=== PATIENT | female | born 2000 | race African-American/Black ===

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

== ENCOUNTER 2019-02-08 18:23 | Inpatient (IN) | payer BC ==
[2019-02-08] MEDS ORDERED: Ondansetron PF 4 MG/2 ML Vial ONE (18:47)
[2019-02-08 18:50] LABS: #Lymphocytes 1.3 thou/uL (1.20-3.40); #Neutrophils 15.1 thou/uL (1.40-6.50); %Basophils 0.2 % (0.0-1.0); %Eosinophils 0.2 % (0.0-10.0); %Lymphocytes 7.6 % (28.0-48.0); %Monocytes 5.5 % (0.0-4.0); %Neutrophils 86.5 % (31.0-61.0); Mean Corpuscular HGB CONC 31.1 g/dL (32.0-36.0); Mean Corpuscular Hemoglobin 26.6 pg (25.0-35.0); Mean Corpuscular Volume 85.7 fL (78.0-98.0); Mean Platelet Volume 9.8 fL (7.4-10.4); Platelet Count 489 thou/uL (130-400); RBC Distribution Width 12.5 % (11.5-14.5); Red Blood Cell (RBC) Count 5.65 mill/uL (4.00-5.20); White Blood Cell (WBC) Count 17.5 thou/uL (4.8-10.8)
[2019-02-08 19:12] LABS: ALT (SGPT) 20 U/L (8-55); AST (SGOT) 17 U/L (5-30); Albumin 4.7 g/dL (3.5-5.0); Alkaline Phosphatase 168 U/L (40-150); Anion Gap 32 mmol/L (10-20); BUN (Urea Nitrogen) 16 mg/dL (8.4-21.0); Bilirubin, Total 0.6 mg/dL (0.2-1.2); Calc. Creatinine Clearance 0 mL/min (70-130); Calcium 10.5 mg/dL (7.8-10.44); Chloride 100 mmol/L (98-107); Estimated GFR-MDRD 46; Globulin 4.6 g/dL (2.4-3.5); Lipase 6 U/L (8-78); Potassium 5.4 mmol/L (3.5-5.1); Protein, Total 9.3 g/dL (6.0-8.3); Sodium 135 mmol/L (136-145)
[2019-02-08 19:17] LABS: Carbon Dioxide 8 mmol/L (22-29); Glucose 597 mg/dL (70-105)
[2019-02-08] MEDS ORDERED: Insulin Regular 100 units/100 ml in NS IVPB SCH (20:45)
[2019-02-08 21:24] LABS: Bilirubin Negative (Negative); Blood, Urine Negative (Negative); Clarity CLEAR (Clear); Glucose, Urine (Dipstick) >=1000 mg/dL (Negative); Leukocyte Negative (Negative); Nitrite Negative (Negative); Protein, Urine (Dipstick) 30 mg/dL (Neg-Trace); Specific Gravity, Urine 1.025 (1.002-1.036); Urobilinogen 0.2 mg/dL (0.2-1.0)
[2019-02-08 21:27] LABS: Bacteria/HPF None Seen HPF (None Seen); Hyaline Casts/LPF 0-3 HYALINE CAST LPF (0-3 Hyaline); Pathc Cast-AUWi Flag 0.13 (0-2.49); Squamous Epithelial None Seen HPF (0-3); WBC/HPF None Seen HPF (0-3)
[2019-02-08] MEDS ORDERED: Insulin Regular 300 UNITS/3 ML VIAL ONE (21:30)
[2019-02-08 22:17] LABS: Magnesium 2.1 mg/dL (1.7-2.2); Phosphorus 5.7 mg/dL (2.3-4.7)
[2019-02-08] MEDS ORDERED: NS 0.9% w/ 20 MEQ KCL 1,000 ML IV PRN ×2 (22:30)
[2019-02-08] MEDS ORDERED: Dextrose 5 %-0.45 % NaCl 1,000 ML IV PRN (22:30)
[2019-02-08] MEDS ORDERED: HUMULIN R 100 UNITS in Sodium Chloride 0.9% 100 ML IVPB SCH (22:30)
[2019-02-08] MEDS ORDERED: Sodium Chloride 0.9% 1,000 ML IV PRN ×4 (22:30)
[2019-02-08] MEDS ORDERED: D5 1/2 NS w/20 mEq KCL 1,000 ML IV PRN (22:30)
[2019-02-08] MEDS ORDERED: CCU Electrolyte Replacement 1 EACH IVPB ONE (22:30)
[2019-02-08] MEDS ORDERED: Ondansetron ODT 4 MG TAB PO PRN (22:34)
[2019-02-08] MEDS ORDERED: Acetaminophen 325 MG TAB PO PRN (22:34)
[2019-02-08] MEDS ORDERED: Ondansetron PF 4 MG/2 ML Vial IVP PRN (22:34)
[2019-02-08] MEDS ORDERED: Potassium Chloride 20 MEQ TAB PO PRN (22:35)
[2019-02-08] MEDS ORDERED: Potassium Phosphate 15 MMOL in Sodium Chloride 0.9% 250 ML 250 ML IV PRN (22:35)
[2019-02-08] MEDS ORDERED: Potassium Chloride 40 MEQ in Sodium Chloride 0.9% 250 ML 250 ML IVPB PRN (22:35)
[2019-02-08] MEDS ORDERED: Magnesium Oxide 400 MG TAB PO PRN ×2 (22:35)
[2019-02-08] MEDS ORDERED: Potassium Chloride 40 MEQ in Premix Bag 1 BAG IVPB PRN (22:35)
[2019-02-08] MEDS ORDERED: Magnesium 2 GM/50 ML 2 GM in Premix Bag 1 BAG IVPB PRN (22:35)
[2019-02-08] MEDS ORDERED: PHOS-NAK 1 PKT PACK PO PRN ×2 (22:35)
[2019-02-08] MEDS ORDERED: CCU ELECTROLYTE REPLACEMENT PROTOCOL FS PRN (22:35)
[2019-02-08] MEDS ORDERED: Potassium Phosphate 9 MMOL in Sodium Chloride 0.9% 100 ML IVPB PRN (22:35)
[2019-02-08] MEDS ORDERED: Potassium Phosphate 12 MMOL in Sodium Chloride 0.9% 250 ML 250 ML IV PRN (22:35)
[2019-02-08 23:32] LABS: Chloride 111 mmol/L (98-107); Potassium 4.6 mmol/L (3.5-5.1); Sodium 141 mmol/L (136-145)
[2019-02-08 23:33] LABS: Calcium 9.5 mg/dL (7.8-10.44); Glucose 353 mg/dL (70-105)
[2019-02-08 23:37] LABS: Calc. Creatinine Clearance 0 mL/min (70-130); Carbon Dioxide Less than 8 mmol/L (22-29); Estimated GFR-MDRD 57
[2019-02-08 23:38] LABS: BUN (Urea Nitrogen) 16 mg/dL (8.4-21.0)
[2019-02-09 00:03] VITALS: BMI 38.2
--- NOTE | 2019-02-09 01:15 | HP ---
The patient was seen and examined on February 08, 2019. CHIEF COMPLAINT: Nausea, vomiting. HISTORY OF PRESENT ILLNESS: The patient is a 18-year-old female with diabetes mellitus type 1, presented to the emergency room with above symptoms. The patient has a long history of diabetes mellitus type 1. She takes Levemir 22 units daily along with 7 units of short-acting insulin 3 times a day with meals. She denies any medication noncompliance. Over the last 1 week, the patient has upper respiratory tract infection that has significantly improved. Over the last 24 hours, the patient developed nausea along with epigastric discomfort. She had 3 episodes of vomiting which contained food she had eaten. She was unable to keep food and liquids down due to persistent nausea. She then presented to the emergency room. She denies any hematemesis, melena, or jaundice. No fever or chills reported. In the emergency room, initial vital signs showed temperature 98.5, respirations 20, pulse rate of 123, blood pressure of 130/96 with O2 saturation 98% on room air. Her workup was consistent with diabetic ketoacidosis. She was started on insulin drip along with IV fluids. PAST MEDICAL HISTORY: 1. Diabetes mellitus type 1. 2. History of diabetic ketoacidosis 2 years ago. PAST SURGICAL HISTORY: Right knee arthroscopic surgery. ALLERGIES: NO KNOWN DRUG ALLERGIES. CURRENT HOME MEDICATIONS: As discussed above. SOCIAL HISTORY: The patient currently lives at home with her family. She is a student. No alcohol, tobacco, or drug use. FAMILY HISTORY: Negative for heart disease. REVIEW OF SYSTEMS: All other review of systems were reviewed and were found negative. PHYSICAL EXAMINATION: VITAL SIGNS: Temperature 98.5, respirations 20, pulse of 123, blood pressure 130/96 with O2 saturation 98% on room air. GENERAL: 18-year-old female in no apparent distress, feels better with IV fluids. HEENT: Head, atraumatic and normocephalic. Sclerae anicteric. Dry mucous membranes. No oral lesions. NECK: Supple. No JVD appreciated. No carotid bruits. LUNGS: Clear to auscultation bilaterally. No wheezing, rales, rhonchi. HEART: S1, S2 present. Tachycardic. No murmurs, rubs, or gallops appreciated. ABDOMEN: Soft, nontender. Bowel sounds present. EXTREMITIES: No edema or calf tenderness. NEUROLOGY: Grossly nonfocal. Moves all 4 extremities. Power was 5/5 in all extremities. PSYCHIATRY: Alert, awake, and oriented x3. SKIN: Warm and dry. LYMPH NODES: No palpable lymph nodes in the neck. Peripheral, vascular, radial pulses palpable bilaterally. MUSCULOSKELETAL: No joint swelling or tenderness. LABORATORY FINDINGS: CBC showed WBC 17.5, hemoglobin 15, hematocrit 48.4, platelet count 489. Chemistry showed sodium 135, potassium 5.4, chloride 100, bicarb 8, BUN 16, creatinine 1.73, anion gap of 32, blood sugar of 597. test was negative. Ketones 8.8. Urinalysis was negative for wbc, bacteria. EKG by my review showed sinus tachycardia. IMPRESSION: 1. Diabetic ketoacidosis, probably precipitated by recent upper respiratory tract infection/dehydration. 2. Anion gap metabolic acidosis secondary to diabetic ketoacidosis. 3. Acute kidney injury secondary to #1. 4. Hyperkalemia secondary to metabolic acidosis. 5. Hyponatremia. 6. Dehydration. 7. Obesity with a BMI of 38.2. 8. Leukocytosis, unlikely to be infectious. 9. History of diabetes mellitus type 1 with diabetic ketoacidosis 2 years ago. PLAN: The patient will be monitored in the intermediate care unit. We will continue insulin drip along with IV fluids per DKA protocol. We will monitor electrolytes closely. We will change the insulin drip to subcu once diabetic ketoacidosis resolves. We will probably start clear liquid diet in a.m. Accu-Cheks every hour. Plan of care was discussed with the patient and the family in detail. They stated understanding. Job ID: [id number]
[2019-02-09 05:27] LABS: Anion Gap 15 mmol/L (10-20); BUN (Urea Nitrogen) 11 mg/dL (8.4-21.0); Calc. Creatinine Clearance 111 mL/min (70-130); Calcium 8.9 mg/dL (7.8-10.44); Carbon Dioxide 14 mmol/L (22-29); Chloride 113 mmol/L (98-107); Estimated GFR-MDRD 69; Glucose 238 mg/dL (70-105); Potassium 4.1 mmol/L (3.5-5.1); Sodium 138 mmol/L (136-145)
[2019-02-09] MEDS ORDERED: Sodium Chloride 0.65% Nasal 44 ML BOT EA NARE PRN (06:56)
[2019-02-09] MEDS ORDERED: Zolpidem Tartrate 5 MG TAB PO PRN (06:56)
[2019-02-09] MEDS ORDERED: Loperamide HCl 2 MG CAP PO PRN (06:56)
[2019-02-09] MEDS ORDERED: Loratadine 10 MG TAB PO PRN (06:56)
[2019-02-09] MEDS ORDERED: Bisacodyl 10 MG SUPP PR PRN (06:56)
[2019-02-09] MEDS ORDERED: Eucerin (Mineral Oil/Petrolatum,White) 30 gm Jar TOP PRN (06:56)
[2019-02-09] MEDS ORDERED: Diabetic Tussin 200 MG/10 ML UDCUP PO PRN (06:56)
[2019-02-09] MEDS ORDERED: Artificial Tears 18 DROP/0.9 ML EA EYE PRN (06:56)
[2019-02-09] MEDS ORDERED: Senokot S 8.6-50 MG TAB PO PRN (06:56)
[2019-02-09] MEDS ORDERED: Cepastat Lozenges 1 LOZ PO PRN (06:56)
[2019-02-09] MEDS ORDERED: Famotidine/PF 20 mg/2ml Vial SLOW IVP SCH (09:00)
[2019-02-09] MEDS ORDERED: Famotidine 20 MG TAB PO SCH (09:00)
[2019-02-09] MEDS ORDERED: Insulin Glargine 30 UNITS in Pre-Filled Syringe 1 EACH SC SCH (09:30)
[2019-02-09] MEDS: Sodium Chloride 0.45% 1,000 ML IV SCH ×2 (10:17→19:55)
[2019-02-09 11:01] LABS: Anion Gap 10 mmol/L (10-20); BUN (Urea Nitrogen) 9 mg/dL (8.4-21.0); Calc. Creatinine Clearance 131 mL/min (70-130); Calcium 8.8 mg/dL (7.8-10.44); Carbon Dioxide 19 mmol/L (22-29); Chloride 110 mmol/L (98-107); Estimated GFR-MDRD 84; Glucose 229 mg/dL (70-105); Magnesium 1.8 mg/dL (1.7-2.2); Phosphorus Less than 1.0 mg/dL (2.3-4.7); Potassium 3.6 mmol/L (3.5-5.1); Sodium 135 mmol/L (136-145)
--- NOTE | 2019-02-09 11:22 | PDOC.PN ---
- Subjective Encounter Start Date: 02/09/19 Encounter Start Time: 09:30 Patient seen and examined. No new complaints. No overnight events - Objective Resuscitation Status - Order Detail: 02/08/19 22:34 Resuscitation Status Routine Resuscitation Status: FULL: Full Resuscitation MAR Reviewed: Yes Vital Signs & Weight: Vital Signs (12 hours) Temp Pulse Resp BP Pulse Ox 02/09/19 08:00 100 02/09/19 07:25 96.8 F L 02/09/19 04:27 98.6 F 02/09/19 00:40 98.0 F 118 H 19 130/87 100 02/09/19 00:15 100 02/08/19 23:41 98.0 F 118 H 19 130/87 100 Weight Weight 209 lb Most Recent Monitor Data Heart Rate from ECG 94 NIBP 110/70 NIBP BP-Mean 83 Respiration from ECG 16 SpO2 100 I&O: 02/08/19 02/09/19 02/10/19 06:59 06:59 06:59 Intake Total 1995 Output Total 650 Balance 1345 Result Diagrams: 02/08/19 18:43 02/09/19 10:21 Additional Labs: Accuchecks 02/09/19 02/09/19 02/09/19 10:08 09:00 08:01 POC Glucose 229 H 326 H 195 H 02/09/19 02/09/19 02/09/19 07:03 06:06 05:06 POC Glucose 244 H 221 H 214 H 02/09/19 02/09/19 02/09/19 04:03 03:05 02:08 POC Glucose 205 H 187 H 209 H 02/09/19 02/09/19 02/08/19 01:13 00:12 22:59 POC Glucose 241 H 251 H 320 H 02/08/19 21:28 POC Glucose 462 H EKG Reviewed by me: Yes (nsr) Phys Exam - Physical Examination Constitutional: NAD HEENT: PERRLA, moist MMs, sclera anicteric Neck: no JVD, supple Respiratory: no wheezing, no rales, no rhonchi Cardiovascular: RRR, no significant murmur, no rub Gastrointestinal: soft, non-tender, no distention, positive bowel sounds Musculoskeletal: no edema, pulses present Neurological: non-focal, normal sensation, moves all 4 limbs Lymphatic: no nodes Psychiatric: normal affect, A&O x 3 Skin: no rash, normal turgor Dx/Plan (1) Hypophosphatemia Code(s): E83.39 - OTHER DISORDERS OF PHOSPHORUS METABOLISM Status: Acute (2) RAEANN (acute kidney injury) Code(s): N17.9 - ACUTE KIDNEY FAILURE, UNSPECIFIED Status: Resolved Comment : Improving (3) DKA (diabetic ketoacidoses) Code(s): E11.10 - TYPE 2 DIABETES MELLITUS WITH KETOACIDOSIS WITHOUT COMA Status: Resolved Qualifiers: Diabetes mellitus type: type 1 Diabetes mellitus complication detail: without coma Qualified Code(s): E10.10 - Type 1 diabetes mellitus with ketoacidosis without coma (4) Dehydration Code(s): E86.0 - DEHYDRATION Status: Resolved (5) Leucocytosis Code(s): D72.829 - ELEVATED WHITE BLOOD CELL COUNT, UNSPECIFIED Status: Acute Comment: due to DKA (6) Diabetes, type I Status: Chronic (7) Obesity (BMI 30-39.9) Code(s): E66.9 - OBESITY, UNSPECIFIED Status: Chronic (8) High anion gap metabolic acidosis Code(s): E87.2 - ACIDOSIS Status: Resolved (9) Hyperkalemia Code(s): E87.5 - HYPERKALEMIA Status: Resolved (10) Hyponatremia Code(s): E87.1 - HYPO-OSMOLALITY AND HYPONATREMIA Status: Resolved - Plan cont current plan of care, plan discussed w/ family * will turn off inuslin drip and give levemir insulin * replace potassium phosphate * continue IVF * will consider transfer to medical later on * medication reviewed as below * symptomatic treatment * discussed with mother bedside. Review of Systems - Review of Systems ENT: negative: Ear Pain, Ear Discharge, Nose Pain, Nose Discharge, Nose Congestion, Mouth Pain, Mouth Swelling, Throat Pain, Throat Swelling, Other Respiratory: negative: Cough, Dry, Shortness of Breath, Hemoptysis, SOB with Excertion, Pleuritic Pain, Sputum, Wheezing Cardiovascular: negative: chest pain, palpitations, orthopnea, paroxysmal nocturnal dyspnea, edema, light headedness, other Gastrointestinal: negative: Nausea, Vomiting, Abdominal Pain, Diarrhea, Constipation, Melena, Hematochezia, Other Genitourinary: negative: Dysuria, Frequency, Incontinence, Hematuria, Retention , Other Musculoskeletal: negative: Neck Pain, Shoulder Pain, Arm Pain, Back Pain, Hand Pain, Leg Pain, Foot Pain, Other - Medications/Allergies Allergies/Adverse Reactions: Allergies Allergy/AdvReac Type Severity Reaction Status Date / Time No Known Allergies Allergy Verified 02/09/19 01:05 Medications: Current Medications Acetaminophen (Tylenol) 650 mg PO Q4H PRN PRN Reason: Headache/Fever/Mild Pain (1-3) Artificial Tears (Tears Naturale) 2 drop EA EYE PRN PRN PRN Reason: Dry Eyes Bisacodyl (Dulcolax) 10 mg [place] DAILYPRN PRN PRN Reason: Constipation Guaifenesin (Robitussin Sf) 200 mg PO Q4H PRN PRN Reason: Cough Insulin Human Regular 100 (units/ Sodium Chloride) 101 mls @ 0 mls/hr IVPB INF JAN; Protocol Sodium Chloride (1/2 Normal Saline) 1,000 mls @ 100 mls/hr IV .Q10H JAN Last Admin: 02/09/19 10:17 Dose: 1,000 mls Insulin Glargine 30 units/ (Miscellaneous Medication) 0.3 mls @ 0 mls/hr SC QAM JAN Potassium Phosphate 30 mmol/ (Sodium Chloride) 510 mls @ 83.3 mls/hr IVPB ONE JAN Loperamide HCl (Imodium) 2 mg PO PRN PRN PRN Reason: Diarrhea/Loose Stools Loratadine (Claritin) 10 mg PO DAILYPRN PRN PRN Reason: Sinus Symptoms Mineral Oil/White Petrolatum (Eucerin Cream) 0 gm TOP BIDPRN PRN PRN Reason: Dry Skin Ccu Electrolyte (Replacement Protocol) 0 each FS PRN PRN PRN Reason: FOR ELECTROLYTE REPLACEMENT Ondansetron HCl (Zofran Odt) 4 mg PO Q6H PRN PRN Reason: Nausea/Vomiting Ondansetron HCl (Zofran) 4 mg IVP Q6H PRN PRN Reason: Nausea/Vomiting Senna/Docusate Sodium (Senokot S) 2 tab PO BID PRN PRN Reason: Constipation Sodium Chloride (Flush - Normal Saline) 10 ml IVF Q12HR JAN Last Admin: 02/09/19 09:32 Dose: 10 ml Sodium Chloride (Flush - Normal Saline) 10 ml IVF PRN PRN PRN Reason: Saline Flush Sodium Chloride ([place] Nasal [place] 0.65%) 0 ml EA NARE QIDPRN PRN PRN Reason: Nasal Congestion Throat Lozenges (Cepastat Lozenges) 1 tonya PO Q2H PRN PRN Reason: Sore Throat Zolpidem Tartrate (Ambien) 5 mg PO HSPRN PRN PRN Reason: Insomnia
[2019-02-09] MEDS ORDERED: Potassium Phosphate 30 MMOL in Sodium Chloride 0.9% 500 ML IVPB SCH (11:30)
[2019-02-09] MEDS ORDERED: HumaLOG 300 UNITS/3 ML VIAL SC PRN (13:28)
[2019-02-09] MEDS ORDERED: Dextrose 5% in Water 1,000 ML IV PRN (13:28)
[2019-02-09] MEDS ORDERED: Dextrose 50% Abboject 50 ML SYRINGE SLOW IVP PRN (13:28)
--- NOTE | 2019-02-09 13:33 | CON ---
DATE OF CONSULTATION: 02/09/2019 SERVICE: Pulmonary Medicine. REASON FOR CONSULT: IMCU patient. HISTORY OF PRESENT ILLNESS: The patient is a 18-year-old female with past medical history significant for type 1 diabetes mellitus. She was in her usual state of health when she had a 1-day history of increasing abdominal discomfort. She presented to the emergency department. She had a little nausea , but no vomiting. She denies having any diarrhea. She did not have any dysuria or vaginal discharge. For couple of days proceeding this event, she had some purulent material coming out of her nose. Her nurse thought she might have a touch of sinusitis. That being said, she really did not feel ill and said that this occurs from time to time in her. She otherwise had no focalizing symptoms. She denies being . PAST MEDICAL HISTORY: Type 1 diabetes mellitus. PAST SURGICAL HISTORY: Right knee arthroscopic surgery. ALLERGIES: NO KNOWN DRUG ALLERGIES. MEDICATIONS: List of her inpatient medications was reviewed. Multiple updates were made at this time. FAMILY HISTORY: Noncontributory. SOCIAL HISTORY: Negative for alcohol, tobacco, or illicit drugs. REVIEW OF SYSTEMS: General; head, ears, eyes, nose, throat; cardiovascular; respiratory; GI; ; musculoskeletal; neurologic; and skin are negative except as mentioned in the HPI. PHYSICAL EXAMINATION: VITAL SIGNS: Afebrile, pulse 103, blood pressure 132/81, respirations 16, and saturation 100% on room air. GENERAL: The patient is awake and alert, in no apparent distress. LUNGS: Decent air entry. There is no prolonged expiratory phase or wheezing. HEART: Normal rate and regular. ABDOMEN: Soft, nontender, and nondistended. Bowel sounds are positive. MUSCULOSKELETAL: No cyanosis or clubbing. No pitting in bilateral lower extremities. NEUROLOGIC: Grossly nonfocal. LABORATORY DATA: WBC 17.5, hemoglobin 15.0, and platelets 489,000. Bicarb has improved to 14, anion gap has improved to 15. Blood sugar ranges from 195 to 326. Beta-hydroxybutyric acid is roughly stable at 8.6. ASSESSMENT: 1. Diabetic ketoacidosis. 2. Acute kidney injury, resolving. 3. Systemic inflammatory response syndrome. DISCUSSION AND PLAN: We will continue IV hydration and insulin drip until the patient's gap closes more fully. At this point, her abdominal discomfort is better, and she has an appetite once again. In fact, she tolerated some clear liquids this morning. I will initiate b.i.d. dosing of Levemir. Pulmonary/Critical Care will continue to follow along while she remains in this location, but once she is off the drip, she can be safely transitioned to the floor. 70 minutes have been devoted to this patient in various activities. I personally reviewed all imaging studies and laboratory data noted within this document. For fifty percent of this time, I was interacting with the patient at the bedside or coordinating care with the care team. For the remainder of the time I was immediately available to the patient in the hospital unit. Job ID: [id number] MTDD
[2019-02-09] MEDS: HumaLOG 300 UNITS/3 ML VIAL SC PRN ×2 (16:49→20:21)
[2019-02-10] MEDS: Sodium Chloride 0.45% 1,000 ML IV SCH (04:44)
[2019-02-10] MEDS: HumaLOG 300 UNITS/3 ML VIAL SC PRN ×3 (04:45→16:31)
[2019-02-10 05:52] LABS: #Basophils 0.1 thou/uL (0.0-0.2); #Eosinphils 0.1 thou/uL (0.0-0.7); #Lymphocytes 3.2 thou/uL (1.20-3.40); #Monocytes 0.7 thou/uL (0.11-0.59); #Neutrophils 6.2 thou/uL (1.40-6.50); %Basophils 0.6 % (0.0-1.0); %Eosinophils 1.2 % (0.0-10.0); %Lymphocytes 30.9 % (28.0-48.0); %Monocytes 6.6 % (0.0-4.0); %Neutrophils 60.8 % (31.0-61.0); Mean Corpuscular HGB CONC 32.3 g/dL (32.0-36.0); Mean Corpuscular Hemoglobin 27.1 pg (25.0-35.0); Mean Corpuscular Volume 84.1 fL (78.0-98.0); Mean Platelet Volume 8.9 fL (7.4-10.4); Platelet Count 324 thou/uL (130-400); RBC Distribution Width 12.5 % (11.5-14.5); Red Blood Cell (RBC) Count 4.42 mill/uL (4.00-5.20); White Blood Cell (WBC) Count 10.2 thou/uL (4.8-10.8)
[2019-02-10 06:04] LABS: Albumin 3.3 g/dL (3.5-5.0); Anion Gap 16 mmol/L (10-20); BUN (Urea Nitrogen) 9 mg/dL (8.4-21.0); BUN/Creatinine Ratio 10.98; Calc. Creatinine Clearance 165 mL/min (70-130); Calcium 8.8 mg/dL (7.8-10.44); Carbon Dioxide 16 mmol/L (22-29); Chloride 108 mmol/L (98-107); Estimated GFR-MDRD Greater than 90; Glucose 198 mg/dL (70-105); Magnesium 1.8 mg/dL (1.7-2.2); Phosphorus 2.7 mg/dL (2.3-4.7); Potassium 3.7 mmol/L (3.5-5.1); Sodium 136 mmol/L (136-145)
[2019-02-10 06:05] LABS: Phosphorus 2.6 mg/dL (2.3-4.7)
[2019-02-10] MEDS ORDERED: Insulin Glargine 30 UNITS in Pre-Filled Syringe 1 EACH SC SCH (09:00)
--- NOTE | 2019-02-10 10:13 | PRG ---
DATE OF SERVICE: 02/10/2019 SERVICE: Pulmonary Medicine. INTERVAL HISTORY: The patient is doing really well from respiratory standpoint. Breathing comfortably. She has a good appetite. She indicates that she feels essentially back to her baseline. PHYSICAL EXAMINATION: VITAL SIGNS: Afebrile, pulse 77, blood pressure 114/74, respirations 18, and saturation 98% on room air. GENERAL: The patient is awake and alert, in no apparent distress. LUNGS: Very good air entry. No prolonged expiratory phase, crackles, or wheezing appreciated. HEART: Normal rate and regular. ABDOMEN: Soft, nontender, and nondistended. Bowel sounds are positive. MUSCULOSKELETAL: No cyanosis or clubbing. No pitting in the bilateral lower extremities. NEUROLOGIC: Grossly nonfocal. LABORATORY DATA: CBC has completely normalized. Basic metabolic profile is unremarkable. Magnesium and phosphorous fall within the normal limits. Bicarb is 16 and once again downtrending. Anion gap is also 16 and gently up trending. That being said, beta-hydroxybutyric acid previously normalized to 0.14. Beta hCG levels previously unremarkable. ASSESSMENT: 1. Diabetic ketoacidosis. 2. Acute kidney injury, resolved. 3. Systemic inflammatory response syndrome, resolved. DISCUSSION AND PLAN: The patient is quite comfortable and tolerating p.o. She does not have any abdominal discomfort or nausea. At this point, she has essentially returned to her usual state of health. She currently has no further requirements for inpatient Pulmonary or Critical Care opinion, and I will sign off. IV fluids will be interrupted. Please call with additional questions or concerns through time. Job ID: [id number]
--- NOTE | 2019-02-10 11:41 | DIS ---
DATE OF ADMISSION: 02/08/2019 DATE OF DISCHARGE: 02/10/2019 PRIMARY CARE PHYSICIAN: [facility] Call admission. DISCHARGE DISPOSITION: Home. PRIMARY DISCHARGE DIAGNOSES: 1. Diabetic ketoacidosis, improved. 2. High anion gap metabolic acidosis, improved. 3. Hyperkalemia, resolved. 4. Hyponatremia, resolved. 5. Leukocytosis due to diabetic ketoacidosis, improved. 6. Hypophosphatemia, replaced. SECONDARY DISCHARGE DIAGNOSES: 1. Obesity with BMI 38. 2. Type 1 diabetes. PRIMARY PROCEDURE/OPERATION: None. RADIOLOGICAL INVESTIGATION: None. SIGNIFICANT LABORATORY DATA: WBC 10.2, hemoglobin 12.0, platelet 324. Sodium 136, potassium 3.7, BUN 9, creatinine 0.82, glucose 198, calcium 8.8, phosphorus 2.7, magnesium 1.8, albumin 3.3. Urinalysis; glucosuria, ketonuria, ketone 0.14. DISCHARGE MEDICATIONS: 1. Levemir insulin 35 units subcu in the morning. 2. Humalog insulin t.i.d. as per sliding scale. CONTRAINDICATION: None. CODE STATUS: Full code. INPATIENT BUDGET ENGINEER: Dr. Conklin was following while in hospital. TEST RESULTS PENDING ON DISCHARGE: None. ALLERGIES: NO KNOWN DRUG ALLERGY. DISCHARGE PLAN: Posthospital, the patient will follow up with primary care physician. HOSPITAL COURSE: A 18-year-old female with above-mentioned medical problem, who was admitted by Dr. Juan Dodge. Please see his H and P for further details. This patient has underlying type 1 diabetes and she is on insulin. She was having recently upper respiratory tract infection that might have precipitated her DKA. This was her second episode of DKA in her life. The patient was admitted to [facility] and she was treated with DKA protocol treatment. Her abnormal electrolytes were replaced and corrected. She had leukocytosis, which was related with stress response from DKA. Her anion gap closed at that point. We transferred her to medical floor. We increased her dose of Levemir insulin to 35 units subcu daily and we also advised her to take Humalog insulin with sliding scale for preprandial insulin. The patient is advised to monitor her blood sugar frequently at home and follow up with primary care physician for further adjustment of therapy. Dietary education given and compliance education given. Plan of care discussed with the patient and mother at bedside today. I have seen and examined the patient at bedside today. She is completely asymptomatic and ready for discharge. All new medication prescription will be sent to her pharmacy. Job ID: [id number]
--- NOTE | 2019-02-10 12:39 | PDOC.PN ---
- Subjective Encounter Start Date: 02/10/19 Encounter Start Time: 10:50 Patient seen and examined. No new complaints. No overnight events - Objective Resuscitation Status - Order Detail: 02/08/19 22:34 Resuscitation Status Routine Resuscitation Status: FULL: Full Resuscitation MAR Reviewed: Yes Vital Signs & Weight: Vital Signs (12 hours) Temp Pulse Resp BP BP Pulse Ox 02/10/19 11:00 97.9 F 76 96 H 92/62 96 02/10/19 08:15 99 02/10/19 07:32 98.1 F 77 18 114/74 91 L 02/10/19 04:00 97.7 F 73 16 105/71 98 Weight Weight 209 lb Most Recent Monitor Data Heart Rate from ECG 99 NIBP 120/75 NIBP BP-Mean 90 Respiration from ECG 23 SpO2 100 I&O: 02/09/19 02/10/19 02/11/19 06:59 06:59 06:59 Intake Total 1994 3482 Output Total 650 1800 Balance 1345 1682 Result Diagrams: 02/10/19 05:04 02/10/19 05:04 Additional Labs: Accuchecks 02/10/19 02/10/19 02/10/19 11:09 04:45 00:25 POC Glucose 267 H 189 H 197 H 02/09/19 02/09/19 20:02 16:35 POC Glucose 354 H 508 H Phys Exam - Physical Examination Constitutional: NAD HEENT: PERRLA, moist MMs, sclera anicteric Neck: no JVD, supple Respiratory: no wheezing, no rales, no rhonchi Cardiovascular: RRR, no significant murmur, no rub Gastrointestinal: soft, non-tender, no distention, positive bowel sounds Musculoskeletal: no edema, pulses present Neurological: non-focal, normal sensation, moves all 4 limbs Lymphatic: no nodes Psychiatric: normal affect, A&O x 3 Skin: no rash, normal turgor Dx/Plan (1) Hypophosphatemia Code(s): E83.39 - OTHER DISORDERS OF PHOSPHORUS METABOLISM Status: Acute (2) RAEANN (acute kidney injury) Code(s): N17.9 - ACUTE KIDNEY FAILURE, UNSPECIFIED Status: Resolved Comment : Improving (3) DKA (diabetic ketoacidoses) Code(s): E11.10 - TYPE 2 DIABETES MELLITUS WITH KETOACIDOSIS WITHOUT COMA Status: Resolved Qualifiers: Diabetes mellitus type: type 1 Diabetes mellitus complication detail: without coma Qualified Code(s): E10.10 - Type 1 diabetes mellitus with ketoacidosis without coma (4) Dehydration Code(s): E86.0 - DEHYDRATION Status: Resolved (5) Leucocytosis Code(s): D72.829 - ELEVATED WHITE BLOOD CELL COUNT, UNSPECIFIED Status: Acute Comment: due to DKA (6) Diabetes, type I Status: Chronic (7) Obesity (BMI 30-39.9) Code(s): E66.9 - OBESITY, UNSPECIFIED Status: Chronic (8) High anion gap metabolic acidosis Code(s): E87.2 - ACIDOSIS Status: Resolved (9) Hyperkalemia Code(s): E87.5 - HYPERKALEMIA Status: Resolved (10) Hyponatremia Code(s): E87.1 - HYPO-OSMOLALITY AND HYPONATREMIA Status: Resolved - Plan cont current plan of care, plan discussed w/ family * medication reviewed as below * symptomatic treatment * see discharge chelsey. Review of Systems - Review of Systems ENT: negative: Ear Pain, Ear Discharge, Nose Pain, Nose Discharge, Nose Congestion, Mouth Pain, Mouth Swelling, Throat Pain, Throat Swelling, Other Respiratory: negative: Cough, Dry, Shortness of Breath, Hemoptysis, SOB with Excertion, Pleuritic Pain, Sputum, Wheezing Cardiovascular: negative: chest pain, palpitations, orthopnea, paroxysmal nocturnal dyspnea, edema, light headedness, other Gastrointestinal: negative: Nausea, Vomiting, Abdominal Pain, Diarrhea, Constipation, Melena, Hematochezia, Other Genitourinary: negative: Dysuria, Frequency, Incontinence, Hematuria, Retention , Other Musculoskeletal: negative: Neck Pain, Shoulder Pain, Arm Pain, Back Pain, Hand Pain, Leg Pain, Foot Pain, Other Skin: negative: Rash, Lesions, Rohit, Bruising, Other - Medications/Allergies Allergies/Adverse Reactions: Allergies Allergy/AdvReac Type Severity Reaction Status Date / Time No Known Allergies Allergy Verified 02/09/19 01:05 Medications: Current Medications Acetaminophen (Tylenol) 650 mg PO Q4H PRN PRN Reason: Headache/Fever/Mild Pain (1-3) Artificial Tears (Tears Naturale) 2 drop EA EYE PRN PRN PRN Reason: Dry Eyes Bisacodyl (Dulcolax) 10 mg [place] DAILYPRN PRN PRN Reason: Constipation Dextrose/Water (Dextrose 50%) 25 gm SLOW IVP PRN PRN PRN Reason: Hypoglycemia Glucagon (Glucagon) 1 mg IM PRN PRN PRN Reason: Hypoglycemia Guaifenesin (Robitussin Sf) 200 mg PO Q4H PRN PRN Reason: Cough Insulin Glargine 30 units/ (Miscellaneous Medication) 0.3 mls @ 0 mls/hr SC QAM [facility] Last Admin: 02/10/19 08:36 Dose: 0.3 mls Dextrose/Water (D5w) 1,000 mls @ 0 mls/hr IV .Q0M PRN PRN Reason: Hypoglycemia Insulin Human Lispro (Humalog) 0 units SC .BEDTIME SLIDING SC PRN PRN Reason: Bedtime Correctional Scale Insulin Human Lispro (Humalog) 0 units SC .AGGRESSIVE SLIDING PRN PRN Reason: Aggressive Correctional Scale Last Admin: 02/10/19 12:07 Dose: 9 unit Loperamide HCl (Imodium) 2 mg PO PRN PRN PRN Reason: Diarrhea/Loose Stools Loratadine (Claritin) 10 mg PO DAILYPRN PRN PRN Reason: Sinus Symptoms Mineral Oil/White Petrolatum (Eucerin Cream) 0 gm TOP BIDPRN PRN PRN Reason: Dry Skin Ccu Electrolyte (Replacement Protocol) 0 each FS PRN PRN PRN Reason: FOR ELECTROLYTE REPLACEMENT Ondansetron HCl (Zofran Odt) 4 mg PO Q6H PRN PRN Reason: Nausea/Vomiting Ondansetron HCl (Zofran) 4 mg IVP Q6H PRN PRN Reason: Nausea/Vomiting Senna/Docusate Sodium (Senokot S) 2 tab PO BID PRN PRN Reason: Constipation Sodium Chloride (Flush - Normal Saline) 10 ml IVF Q12HR [facility] Last Admin: 02/10/19 09:37 Dose: Not Given Sodium Chloride (Flush - Normal Saline) 10 ml IVF PRN PRN PRN Reason: Saline Flush Sodium Chloride ([place] Nasal [place] 0.65%) 0 ml EA NARE QIDPRN PRN PRN Reason: Nasal Congestion Throat Lozenges (Cepastat Lozenges) 1 tonya PO Q2H PRN PRN Reason: Sore Throat Zolpidem Tartrate (Ambien) 5 mg PO HSPRN PRN PRN Reason: Insomnia
[2019-02-10 16:28] VITALS: BP 111/75; TEMP 97.6
== END 2019-02-10 17:23 | disposition home or self-care (01) | DRG 638 ==
LOC: ERS 18:23 → IMCU/EMU 20:28 → T4-A 02-09 23:17
PROVIDERS: ADMIT Internal Medicine; ATTEND Internal Medicine
DX: E10.10 Type 1 diabetes mellitus with ketoacidosis without coma (principal); N17.9 Acute kidney failure, unspecified; E87.1 Hypo-osmolality and hyponatremia; R65.10 Systemic inflammatory response syndrome (SIRS) of non-infectious origin without acute organ dysfunction; E87.5 Hyperkalemia; E83.39 Other disorders of phosphorus metabolism; E86.0 Dehydration; E66.9 Obesity, unspecified; Z68.38 Body mass index [BMI] 38.0-38.9, adult; Z79.4 Long term (current) use of insulin
CPT/HCPCS: 36415; 36416; 80053; 80069; 81003; 81015; 82010; 83690; 83735; 83930; 84100; 84484; 84702; 85025; 93005; 96361; 96365; 96366; 96375; J1815; J1825; J2405; J3490; J7050

== ENCOUNTER 2019-06-20 09:33 | Inpatient (IN) | payer BC ==
[2019-06-20] MEDS ORDERED: Insulin Regular 300 UNITS/3 ML VIAL ONE (10:36)
[2019-06-20] MEDS ORDERED: Insulin Regular 100 units/100 ml in NS IVPB SCH (10:45)
[2019-06-20 10:50] LABS: Band 6 % (5-11); Hemoglobin 15.9 g/dL (12.0-16.0); Lymphocytes 7 % (28-48); MDiff Complete? YES; Mean Corpuscular HGB CONC 31.3 g/dL (32.0-36.0); Mean Corpuscular Hemoglobin 26.6 pg (25.0-35.0); Mean Corpuscular Volume 85.1 fL (78.0-98.0); Mean Platelet Volume 10.6 fL (7.4-10.4); Monocytes 1 % (0-4); Neutrophil 86 % (31-61); Nucleated RBC 1 % (0); Platelet Count 408 thou/uL (130-400); RBC Distribution Width 13.7 % (11.5-14.5); Red Blood Cell (RBC) Count 5.97 mill/uL (4.00-5.20); Vacuoles SLIGHT
[2019-06-20] MEDS ORDERED: Ondansetron PF 4 MG/2 ML Vial ONE (11:15)
--- NOTE | 2019-06-20 11:35 | RAD ---
Chest AP view INDICATION: Hyperglycemia COMPARISON: None FINDINGS: Lungs:The lungs are clear Cardiac silhouette:The cardiomediastinal silhouette appears within normal limits. Pulmonary vasculature:Normal Pleural spaces:No pleural effusion or pneumothorax is demonstrated. Upper abdomen:No abnormality seen. Osseous structures: No acute osseous abnormality. Additional findings:None. IMPRESSION: No acute cardiopulmonary abnormality.
[2019-06-20 12:26] LABS: Albumin 4.2 g/dL (3.5-5.0)
[2019-06-20 12:28] LABS: Chloride 103 mmol/L (98-107); Potassium 6.5 mmol/L (3.5-5.1); Sodium 131 mmol/L (136-145)
[2019-06-20 12:29] LABS: Globulin 4.3 g/dL (2.4-3.5); Protein, Total 8.5 g/dL (6.0-8.3)
[2019-06-20 12:31] LABS: Bilirubin, Total 0.4 mg/dL (0.2-1.2)
[2019-06-20 12:32] LABS: Alkaline Phosphatase 161 U/L (40-100); Calc. Creatinine Clearance 0 mL/min (70-130); Carbon Dioxide Less than 8 mmol/L (22-29); Estimated GFR-MDRD 43; Glucose 627 mg/dL (70-105); Phosphorus 6.2 mg/dL (2.3-4.7)
[2019-06-20 12:33] LABS: BUN (Urea Nitrogen) 26 mg/dL (8.4-21.0)
[2019-06-20 12:34] LABS: AST (SGOT) 16 U/L (5-30); Magnesium 2.3 mg/dL (1.7-2.2)
[2019-06-20 12:35] LABS: ALT (SGPT) 17 U/L (8-55); Lipase 36 U/L (8-78)
--- NOTE | 2019-06-20 14:05 | PDOC.HHP ---
Hospitalist HPI - History of Present Illness nausea and vomiting History of Present Illness: 18 y/o insulin dependent diabetic female present to the ER with 1 day history of nausea/vomiting abdominal pain, reports elevated blood sugar despite admitting compliance with home insulin, levemir 22 units at bedtime, last dose ; Denies other pain, no fever, chills; noted in the ER to be in DKA, reports last DKA admission was in January 2019; Hospitalist ROS - Review of Systems Constitutional: denies: fever, chills Eyes: denies: vision change, redness ENT: denies: nose congestion, throat pain Respiratory: denies: shortness of breath, SOB with excertion, pleuritic pain Cardiovascular: denies: chest pain, palpitations Gastrointestinal: reports: nausea, vomiting, abdominal pain Genitourinary: denies: dysuria, frequency Musculoskeletal: denies: neck pain, shoulder pain Skin: denies: rash Neurological: denies: weakness, numbness All other systems reviewed; all pertinent +/- noted in HPI/Subj Hospitalist History - Past Medical History Source: patient, family Endocrine: reports: Diabetes - Past Surgical History Past Surgical History: reports: no pertinent history - Family History Family History: reports: diabetes mellitus - Social History Smoking Status: Never smoker Alcohol: reports: None Drugs: reports: none Living Situation: With Family Activity level: independent ambulation - Exam General Appearance: NAD, awake alert Eye: PERRL, anicteric sclera ENT: normocephalic atraumatic, no oropharyngeal lesions, dry oral mucosa Neck: supple, symmetric, no JVD, no thyromegaly, no lymphadenopathy, no carotid bruit Heart: RRR, no murmur, no gallops, no rubs, normal peripheral pulses Respiratory: CTAB, no wheezes, no rales, no ronchi, normal chest expansion, no tachypnea, normal percussion Gastrointestinal: soft, non-tender, non-distended, normal bowel sounds, no palpable masses, no hepatomegaly, no splenomegaly, no bruit Extremities: no cyanosis, no clubbing, no edema Skin: normal turgor, no lesions, no rashes Neurological: cranial nerve grossly intact, normal sensation to touch, no weakness, no focal deficits, no new deficit Musculoskeletal: normal tone, normal strength, no muscle wasting Psychiatric: normal affect, normal behavior, A&O x 3 Hospitalist Results - Labs Result Diagrams: 06/20/19 10:15 06/20/19 12:11 Lab results: WBC 36.0 thou/uL (4.8-10.8) H 06/20/19 10:15 Hgb 15.9 g/dL (12.0-16.0) 06/20/19 10:15 Hct 50.8 % (36.0-47.0) H 06/20/19 10:15 MCV 85.1 fL (78.0-98.0) 06/20/19 10:15 Plt Count 408 thou/uL (130-400) H 06/20/19 10:15 Band Neuts % (Manual) 6 % (5-11) 06/20/19 10:15 Sodium 131 mmol/L (136-145) L 06/20/19 12:11 Potassium 6.5 mmol/L (3.5-5.1) H 06/20/19 12:11 Chloride 103 mmol/L (98-107) 06/20/19 12:11 Carbon Dioxide Less than 8 mmol/L (22-29) L* 06/20/19 12:11 BUN 26 mg/dL (8.4-21.0) H 06/20/19 12:11 Creatinine 1.83 mg/dL (0.6-1.1) H 06/20/19 12:11 Glucose 627 mg/dL (70-105) H* 06/20/19 12:11 Lactic Acid 3.7 mmol/L (0.5-2.2) H 06/20/19 11:00 Calcium 9.0 mg/dL (7.8-10.44) 06/20/19 12:11 Total Bilirubin 0.4 mg/dL (0.2-1.2) 06/20/19 12:11 AST 16 U/L (5-30) 06/20/19 12:11 ALT 17 U/L (8-55) 06/20/19 12:11 Alkaline Phosphatase 161 U/L (40-100) H 06/20/19 12:11 Serum Total Protein 8.5 g/dL (6.0-8.3) H 06/20/19 12:11 Albumin 4.2 g/dL (3.5-5.0) 06/20/19 12:11 Lipase 36 U/L (8-78) 06/20/19 12:11 Hospitalist H&P A/P - Problem (1) DKA (diabetic ketoacidoses) Code(s): E11.10 - TYPE 2 DIABETES MELLITUS WITH KETOACIDOSIS WITHOUT COMA Status: Resolved Qualifiers: Diabetes mellitus type: type 1 Diabetes mellitus complication detail: without coma Qualified Code(s): E10.10 - Type 1 diabetes mellitus with ketoacidosis without coma Assessment and Plan: admit to IMU start DKA protocol, glucose monitor every 1 hour; repeat BMP every 6 hours, monitor electrolytes, start hypoglycemic protocol (2) Dehydration Code(s): E86.0 - DEHYDRATION Status: Resolved Assessment and Plan: rehydrate with IV fluids (3) Hyperkalemia Code(s): E87.5 - HYPERKALEMIA Status: Resolved Assessment and Plan: on insulin drip; 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
[2019-06-20 14:53] LABS: Bilirubin Negative (Negative); Blood, Urine 1+ (Negative); Clarity Clear (Clear); Glucose, Urine (Dipstick) Greater than 1000 mg/dL (Negative); Leukocyte Negative Leu/uL (Negative); Nitrite Negative (Negative); Protein, Urine (Dipstick) 30 mg/dL (Neg-Trace); RBC/HPF 0-3 HPF (0-3); Squamous Epithelial 0-3 HPF (0-3); Urobilinogen Normal mg/dL (Less than 2)
[2019-06-20 14:53] LABS: Pregnancy Test - Urine (BHCG) Negative (Negative); Pregu Control Background? CLEAR/WHITE (CLR/WHITE); Pregu Control Bar Appear? YES (CONTROL BAR); Specific Gravity 1.014 (1.002-1.036)
[2019-06-20 14:54] LABS: Bacteria/HPF 1+ HPF (None Seen)
[2019-06-20] MEDS ORDERED: Sodium Chloride 0.9% 1,000 ML IV SCH (16:10)
[2019-06-20] MEDS ORDERED: Ondansetron ODT 4 MG TAB SL PRN (16:10)
[2019-06-20] MEDS ORDERED: Dextrose 5% in Water 1,000 ML IV PRN (16:10)
[2019-06-20] MEDS ORDERED: NS 0.9% w/ 20 MEQ KCL 1,000 ML/1,000 ML BAG IV PRN ×2 (16:10)
[2019-06-20] MEDS ORDERED: Dextrose 50% Abboject 50 ML SYRINGE SLOW IVP PRN (16:10)
[2019-06-20] MEDS ORDERED: Sodium Chloride 0.9% 1,000 ML IV PRN ×8 (16:10→17:49)
[2019-06-20] MEDS ORDERED: Ondansetron PF 4 MG/2 ML Vial IVP PRN ×2 (16:10→17:49)
[2019-06-20] MEDS ORDERED: D5 1/2 NS w/20 mEq KCL 1,000 ML IV PRN (16:10)
[2019-06-20] MEDS ORDERED: Dextrose 5 %-0.45 % NaCl 1,000 ML IV PRN ×2 (16:10→17:49)
[2019-06-20] MEDS ORDERED: Potassium Chloride 40 MEQ in Sodium Chloride 0.9% 250 ML 250 ML IVPB PRN ×2 (16:12→17:59)
[2019-06-20] MEDS ORDERED: CCU ELECTROLYTE REPLACEMENT PROTOCOL FS PRN ×2 (16:12→17:59)
[2019-06-20] MEDS ORDERED: Magnesium 2 GM/50 ML 2 GM in Premix Bag 1 BAG IVPB PRN ×2 (16:12→17:59)
[2019-06-20] MEDS ORDERED: Potassium Chloride 40 MEQ in Premix Bag 1 BAG IVPB PRN ×2 (16:12→17:59)
[2019-06-20] MEDS ORDERED: Potassium Phosphate 12 MMOL in Sodium Chloride 0.9% 250 ML 250 ML IV PRN ×2 (16:12→17:59)
[2019-06-20] MEDS ORDERED: Potassium Chloride 20 MEQ TAB PO PRN ×2 (16:12→17:59)
[2019-06-20] MEDS ORDERED: PHOS-NAK 1 PKT PACK PO PRN ×4 (16:12→17:59)
[2019-06-20] MEDS ORDERED: Magnesium Oxide 400 MG TAB PO PRN ×4 (16:12→17:59)
[2019-06-20] MEDS ORDERED: Potassium Phosphate 15 MMOL in Sodium Chloride 0.9% 250 ML 250 ML IV PRN ×2 (16:12→17:59)
[2019-06-20] MEDS ORDERED: Potassium Phosphate 9 MMOL in Sodium Chloride 0.9% 100 ML IVPB PRN ×2 (16:12→17:59)
[2019-06-20] MEDS ORDERED: Insulin Regular 300 UNITS/3 ML VIAL IVP SCH (16:15)
[2019-06-20] MEDS ORDERED: ADD ELECTROLYTE REPLACEMENT SET TO PROFILE FS SCH (16:15)
[2019-06-20] MEDS ORDERED: HUMULIN R 100 UNITS in Sodium Chloride 0.9% 100 ML IVPB SCH ×2 (16:15→17:49)
[2019-06-20] MEDS ORDERED: HYDROcodone/Acetaminophen 5/325 mg Tablet PO PRN (17:49)
[2019-06-20] MEDS ORDERED: CCU Electrolyte Replacement 1 EACH IVPB ONE (17:49)
[2019-06-20] MEDS ORDERED: Acetaminophen 325 MG TAB PO PRN (17:49)
[2019-06-20] MEDS ORDERED: NS 0.9% w/ 20 MEQ KCL 1,000 ML IV PRN ×2 (17:49)
[2019-06-20] MEDS ORDERED: Zolpidem Tartrate 5 MG TAB PO PRN (17:49)
[2019-06-20] MEDS ORDERED: Senokot S 8.6-50 MG TAB PO PRN (17:49)
[2019-06-20 18:56] LABS: BUN (Urea Nitrogen) 19 mg/dL (8.4-21.0); Calc. Creatinine Clearance 94 mL/min (70-130); Calcium 8.5 mg/dL (7.8-10.44); Carbon Dioxide Less than 8 mmol/L (22-29); Chloride 108 mmol/L (98-107); Estimated GFR-MDRD 52; Glucose 302 mg/dL (70-105); Phosphorus 2.2 mg/dL (2.3-4.7); Potassium 4.8 mmol/L (3.5-5.1); Sodium 134 mmol/L (136-145)
[2019-06-20] MEDS: Famotidine/PF 20 mg/2ml Vial SLOW IVP SCH (20:45)
[2019-06-20] MEDS: D5 1/2 NS w/20 mEq KCL 1,000 ML IV PRN (21:07)
[2019-06-20 21:35] LABS: BUN (Urea Nitrogen) 15 mg/dL (8.4-21.0); Calc. Creatinine Clearance 109 mL/min (70-130); Calcium 7.9 mg/dL (7.8-10.44); Chloride 108 mmol/L (98-107); Estimated GFR-MDRD 62; Glucose 219 mg/dL (70-105); Potassium 4.1 mmol/L (3.5-5.1); Sodium 132 mmol/L (136-145)
[2019-06-20 21:38] LABS: Carbon Dioxide Less than 8 mmol/L (22-29)
[2019-06-21] MEDS: D5 1/2 NS w/20 mEq KCL 1,000 ML IV PRN ×2 (00:56→05:01)
[2019-06-21 01:43] LABS: Anion Gap 18 mmol/L (10-20); BUN (Urea Nitrogen) 11 mg/dL (8.4-21.0); Calc. Creatinine Clearance 107 mL/min (70-130); Calcium 8.4 mg/dL (7.8-10.44); Carbon Dioxide 11 mmol/L (22-29); Chloride 107 mmol/L (98-107); Estimated GFR-MDRD 61; Glucose 296 mg/dL (70-105); Potassium 3.9 mmol/L (3.5-5.1); Sodium 132 mmol/L (136-145)
[2019-06-21 05:32] VITALS: BMI 41.6
[2019-06-21 05:45] LABS: Anion Gap 12 mmol/L (10-20); BUN (Urea Nitrogen) 10 mg/dL (8.4-21.0); Calc. Creatinine Clearance 122 mL/min (70-130); Carbon Dioxide 16 mmol/L (22-29); Chloride 107 mmol/L (98-107); Estimated GFR-MDRD 70; Potassium 3.5 mmol/L (3.5-5.1); Sodium 131 mmol/L (136-145)
[2019-06-21 05:46] LABS: Calcium 8.4 mg/dL (7.8-10.44); Glucose 225 mg/dL (70-105)
[2019-06-21 08:52] LABS: Hemoglobin 12.8 g/dL (12.0-16.0); Mean Corpuscular HGB CONC 33.6 g/dL (32.0-36.0); Mean Corpuscular Hemoglobin 26.4 pg (25.0-35.0); Mean Corpuscular Volume 78.6 fL (78.0-98.0); Mean Platelet Volume 9.7 fL (7.4-10.4); Platelet Count 177 thou/uL (130-400); RBC Distribution Width 13.2 % (11.5-14.5); Red Blood Cell (RBC) Count 4.86 mill/uL (4.00-5.20); White Blood Cell (WBC) Count 21.3 thou/uL (4.8-10.8)
[2019-06-21] MEDS: Enoxaparin Sodium 40 MG/0.4 ML SYRINGE SC SCH (10:26)
[2019-06-21] MEDS: Famotidine/PF 20 mg/2ml Vial SLOW IVP SCH (10:26)
[2019-06-21] MEDS ORDERED: Dextrose 50% Abboject 50 ML SYRINGE IVP PRN (16:17)
[2019-06-21] MEDS ORDERED: Insulin Glargine 25 UNITS in Pre-Filled Syringe 1 EACH SC SCH (16:30)
[2019-06-21] MEDS: HumaLOG 300 UNITS/3 ML VIAL SC PRN ×2 (17:02→20:39)
[2019-06-21] MEDS: Famotidine 20 MG TAB PO SCH (20:39)
--- NOTE | 2019-06-21 21:00 | PDOC.HOSPP ---
- Subjective Encounter Date: 06/21/19 - Objective Vital Signs & Weight: Vital Signs (12 hours) Temp Pulse Resp BP Pulse Ox 06/21/19 20:00 98.4 F 102 H 16 118/68 100 06/21/19 18:22 99.1 F 106 H 18 111/67 100 06/21/19 15:58 99.0 F 06/21/19 11:28 98.5 F Weight Weight 226 lb 8 oz Most Recent Monitor Data Heart Rate from ECG 105 NIBP 111/79 NIBP BP-Mean 89 Respiration from ECG 22 SpO2 100 I&O: 06/20/19 06/21/19 06/22/19 06:59 06:59 06:59 Intake Total 4245 Output Total 5200 0 Balance -955 0 Result Diagrams: 06/21/19 08:42 06/21/19 05:11 Additional Labs: Accuchecks 06/21/19 06/21/19 06/21/19 16:43 14:08 13:13 POC Glucose 344 H 231 H 236 H 06/21/19 06/21/19 06/21/19 12:10 11:14 10:02 POC Glucose 175 H 150 H 121 H 06/21/19 06/21/19 06/21/19 09:13 07:59 06:50 POC Glucose 131 H 153 H 198 H 06/21/19 06/21/19 06/21/19 05:59 05:14 03:59 POC Glucose 228 H 215 H 261 H 06/21/19 06/21/19 06/21/19 03:05 02:17 01:14 POC Glucose 239 H 247 H 264 H 06/21/19 06/20/19 06/20/19 00:10 22:57 22:00 POC Glucose 275 H 254 H 229 H 06/20/19 21:16 POC Glucose 223 H Hospitalist ROS - Review of Systems Respiratory: denies: shortness of breath Cardiovascular: denies: chest pain Gastrointestinal: denies: abdominal pain - Medication Medications: Active Medications Generic Name Dose Route Start Last Admin Trade Name Freq PRN Reason Stop Dose Admin Enoxaparin Sodium 40 mg 06/21/19 09:00 06/21/19 10:26 Lovenox SC 40 mg 0900 JAN Administration Insulin Human Lispro 0 units 06/21/19 16:17 09/29/19 17:02 Humalog SC 8 unit .MODERATE SLIDING SC PRN Administration MODERATE SLIDING SCALE Protocol - Exam General Appearance: NAD, awake alert Eye: PERRL, anicteric sclera ENT: normocephalic atraumatic, no oropharyngeal lesions, moist mucosa Neck: supple, symmetric, no JVD, no thyromegaly, no lymphadenopathy, no carotid bruit Heart: RRR, no murmur, no gallops, no rubs, normal peripheral pulses Respiratory: CTAB, no wheezes, no rales, no ronchi, normal chest expansion, no tachypnea, normal percussion Gastrointestinal: soft, non-tender, non-distended, normal bowel sounds, no palpable masses, no hepatomegaly, no splenomegaly, no bruit Extremities: no cyanosis, no clubbing, no edema Skin: normal turgor, no lesions, no rashes Neurological: cranial nerve grossly intact, normal sensation to touch, no weakness, no focal deficits, no new deficit Musculoskeletal: normal tone, normal strength, no muscle wasting Psychiatric: normal affect, normal behavior, A&O x 3 Hosp A/P (1) DKA (diabetic ketoacidoses) Code(s): E11.10 - TYPE 2 DIABETES MELLITUS WITH KETOACIDOSIS WITHOUT COMA Status: Resolved Qualifiers: Diabetes mellitus type: type 1 Diabetes mellitus complication detail: without coma Qualified Code(s): E10.10 - Type 1 diabetes mellitus with ketoacidosis without coma Plan: will start diabetic diet, discontinue insulin drip and start lantus with insulin sliding coverage; repeat labs in the morning; (2) Dehydration Code(s): E86.0 - DEHYDRATION Status: Resolved (3) Hyperkalemia Code(s): E87.5 - HYPERKALEMIA Status: Resolved
[2019-06-22] MEDS: HumaLOG 300 UNITS/3 ML VIAL SC PRN ×2 (05:26→11:52)
[2019-06-22 06:03] LABS: #Eosinphils 0.1 thou/uL (0.0-0.7); #Lymphocytes 2.7 thou/uL (1.20-3.40); #Neutrophils 6.4 thou/uL (1.40-6.50); %Basophils 0.5 % (0.0-1.0); %Eosinophils 0.8 % (0.0-10.0); %Lymphocytes 26.4 % (28.0-48.0); %Monocytes 9.5 % (0.0-4.0); %Neutrophils 62.8 % (31.0-61.0); Hemoglobin 12.6 g/dL (12.0-16.0); Mean Corpuscular HGB CONC 33.2 g/dL (32.0-36.0); Mean Corpuscular Hemoglobin 26.7 pg (25.0-35.0); Mean Corpuscular Volume 80.3 fL (78.0-98.0); Mean Platelet Volume 9.1 fL (7.4-10.4); Platelet Count 259 thou/uL (130-400); RBC Distribution Width 13.2 % (11.5-14.5); Red Blood Cell (RBC) Count 4.74 mill/uL (4.00-5.20); White Blood Cell (WBC) Count 10.2 thou/uL (4.8-10.8)
[2019-06-22 06:07] LABS: Anion Gap 13 mmol/L (10-20); BUN (Urea Nitrogen) 10 mg/dL (8.4-21.0); Calc. Creatinine Clearance 153 mL/min (70-130); Calcium 8.5 mg/dL (7.8-10.44); Carbon Dioxide 21 mmol/L (22-29); Chloride 103 mmol/L (98-107); Estimated GFR-MDRD Greater than 90; Glucose 261 mg/dL (70-105); Potassium 3.5 mmol/L (3.5-5.1); Sodium 133 mmol/L (136-145)
[2019-06-22] MEDS ORDERED: Insulin Glargine 25 UNITS in Pre-Filled Syringe 1 EACH SC SCH (09:00)
[2019-06-22] MEDS: Famotidine 20 MG TAB PO SCH (09:00)
[2019-06-22] MEDS: Enoxaparin Sodium 40 MG/0.4 ML SYRINGE SC SCH (09:00)
[2019-06-22 13:57] VITALS: BP 102/68; TEMP 98.7
--- NOTE | 2019-06-23 05:10 | DIS ---
DATE OF ADMISSION: 06/20/2019 DATE OF DISCHARGE: 06/22/2019 DISPOSITION: The patient was discharged home with family. FINAL DIAGNOSES: 1. Diabetic ketoacidosis. 2. Dehydration. 3. Hyperkalemia. CONDITION: Stable and improved. DIET: Carbohydrate controlled diet. MEDICATIONS: Please refer to medication discharge reconciliation form. ACTIVITY: As tolerated. Do not over exert yourself, no strenuous activities. DISCHARGE INSTRUCTIONS: If any fevers, chills, nausea, vomiting, chest pain, shortness of breath, bleeding, swelling, weakness, numbness, seek immediate medical attention. CONSULTANTS: None. FOLLOWUP: With primary care physician in 1 week. BRIEF HOSPITAL COURSE: Esther is a pleasant 18-year-old diabetic female who presents to the emergency room with complaints of generalized weakness, dehydration, and acute hyperglycemia with blood sugars going in the 500s. She was found to be in diabetic ketoacidosis and admitted to the intensive care unit with IV fluids, insulin drip, and electrolyte replacement. Her potassium has now normalized. She is ambulatory, tolerating oral intake. No evidence of infection. On the day of discharge, during my [id number] meeting with the patient, I discussed all discharge instructions including the need for compliance with medication, followup and when to return to the emergency room for which she has verbalized understanding. TIME SPENT: Total discharge time spent 35 minutes. Job ID: [id number]
== END 2019-06-22 15:27 | disposition home or self-care (01) | DRG 639 ==
LOC: ERS 09:33 → IMCU/EMU 15:57 → T4-A 06-21 17:51
PROVIDERS: ADMIT Internal Medicine; ATTEND Internal Medicine
DX: E10.10 Type 1 diabetes mellitus with ketoacidosis without coma (principal); E86.0 Dehydration; E78.5 Hyperlipidemia, unspecified; R00.0 Tachycardia, unspecified; Z83.3 Family history of diabetes mellitus; Z79.4 Long term (current) use of insulin
CPT/HCPCS: 36415; 36416; 71045; 80048; 80053; 81003; 81015; 81025; 82010; 83605; 83690; 83735; 84100; 85025; 85027; 87040; 87804; 93005; 96361; 96365; 96366; 96375; J1650; J1815; J2405; J3490; S0028

== ENCOUNTER 2019-08-03 18:35 | Emergency (ER) | payer BC ==
[~2019-08-03 18:35] MED LIST: Atropine Sulfate 1 mg/10 ml Syringe ONE; Calcium Chloride 1 GM/10 ML Abboject SYRINGE ONE; EPINEPHRINE IN SOD CHLOR,ISO 1 MG/10 ML SYRINGE IV ONE; EPINEPHrine 1 MG/10 ML Abboject SYRINGE ONE; EPINEPHrine 1 mg/ml MDV (1ml Charge) ONE; Magnesium 5 GM/10 ML Abboject SYRINGE ONE
[2019-08-03 19:22] LABS: BHCG - Serum Negative (NEGATIVE); Pregs Control Background? CLEAR/WHITE (CLR/WHITE); Pregs Control Bar Appear? YES (CONTROL BAR)
[2019-08-03 19:31] LABS: Hemoglobin 14.4 g/dL (12.0-16.0); Mean Corpuscular HGB CONC 29.2 g/dL (32.0-36.0); Mean Corpuscular Hemoglobin 27.2 pg (25.0-35.0); Platelet Count 490 thou/uL (130-400); RBC Distribution Width 14.9 % (11.5-14.5); Red Blood Cell (RBC) Count 5.29 mill/uL (4.00-5.20); White Blood Cell (WBC) Count 49.2 thou/uL (4.8-10.8)
[2019-08-03 19:39] LABS: ALT (SGPT) 16 U/L (8-55); AST (SGOT) 15 U/L (5-30); Albumin 4.7 g/dL (3.5-5.0); Alkaline Phosphatase 200 U/L (40-100); BUN (Urea Nitrogen) 33 mg/dL (8.4-21.0); Bilirubin, Total 0.3 mg/dL (0.2-1.2); Calc. Creatinine Clearance 0 mL/min (70-130); Calcium 9.6 mg/dL (7.8-10.44); Chloride 97 mmol/L (98-107); Estimated GFR-MDRD 28; Globulin 4.4 g/dL (2.4-3.5); Protein, Total 9.1 g/dL (6.0-8.3); Sodium 134 mmol/L (136-145)
[2019-08-03 19:43] LABS: Carbon Dioxide Less than 8 mmol/L (22-29); Glucose 947 mg/dL (70-105); Potassium 7.1 mmol/L (3.5-5.1)
[2019-08-03 19:55] LABS: Band 24 % (5-11); Burr Cells SLIGHT = 2-5 cells (100X) (0-1/hpf); Hypochromia SLIGHT = 6-15 cells (100X) (0-5/hpf); Lymphocytes 5 % (28-48); MDiff Complete? YES; Macrocytosis SLIGHT = 6-15 cells (100X) (0-5/hpf); Metamyelocyte 1 % (0-0); Monocytes 6 % (0-4); Myelocyte 2 % (0-0); Neutrophil 60 % (31-61); Ovalocytes SLIGHT = 2-5 cells (100X) (0-1/hpf); Platelet Morphology Comment Appears Increased; Polychromasia SLIGHT = 2-3 cells (100X) (0-2/hpf); Reactive Lymphocytes 2 % (0-10); Tear Drops SLIGHT = 2-5 cells (100X) (0-1/hpf)
--- NOTE | 2019-08-03 20:55 | CT ---
CT abdomen and pelvis noncontrast HISTORY: Flank pain. FINDINGS: Each renal collecting system and ureter are decompressed without stone evident. Urinary judson dder is unremarkable. Lack of contrast limits evaluation for other abnormalities. Ill-defined parenchymal opacity at the le ft posterior lung base. Extensive motion artifact limits detail. No evidence of bowel obstruction. No free air or free fluid. IMPRESSION: No CT evidence of urinary tract obstruction or calcification. Mild infiltrate at the left posterior lung base. Clinical correlation regarding other signs and sympt oms of left lower lobe pneumonitis is required.
--- NOTE | 2019-08-03 20:56 | RAD ---
RADIOGRAPH CHEST 1 VIEW: DATE: 08/03/2019 HISTORY: 18-year-old female with cough and dyspnea FINDINGS: There are no airspace densities, pulmonary edema, pneumothorax, or cardiomegaly. The lateral costophr enic angles are sharp. IMPRESSION: No acute cardiopulmonary findings.
[2019-08-03] MEDS ORDERED: Sodium Bicarbonate 2.5 MEQ/5 ML VIAL ONE (21:28)
[2019-08-03] MEDS ORDERED: Magnesium 2 GM/50 ML BAG (IN WATER) ONE ×2 (21:28→21:43)
[2019-08-03] MEDS ORDERED: Sodium Bicarb 50 MEQ/50 ML VIAL ONE ×3 (21:28→21:41)
[2019-08-03] MEDS ORDERED: Calcium Chloride 1 GM/10 ML Abboject SYRINGE ONE ×2 (21:38→21:40)
[2019-08-03] MEDS ORDERED: Insulin Regular 300 UNITS/3 ML VIAL ONE (21:45)
[2019-08-03] MEDS ORDERED: DOPamine 400 MG/D5W 250 ML 0 ML ONE (22:01)
[2019-08-03] MEDS ORDERED: EPINEPHrine 4 MG in Sodium Chloride 0.9% 250 ML 250 ML IV SCH (22:15)
[2019-08-04 09:27] LABS: CO2 Tension (PvCO2) 18.3 mmHg (40.0-50.0)
[2019-08-04 09:28] LABS: Base Excess-Venous -28.3 mmol/L (-2.0 to 3.0); Bicarbonate (HCO3v) 3.6 mmol/L (22.0-28.0); vO2 Saturation-calc 84.6 % (60.0-85.0)
[2019-08-04 09:29] LABS: Calcium, Ionized 0.99 mmol/L (See Comments:); Chloride 113 mmol/L (98-107); Hemoglobin - Calc 18.4 g/dL (12.0-16.0); Potassium 6.9 mmol/L (3.5-5.1); Sodium 132 mmol/L (138-145); T. Carbon Dioxide Less than 5.0 mmol/L (22.0-28.0)
== END 2019-08-03 22:15 | disposition expired ==
LOC: ERS 18:35
DX: E11.11 Type 2 diabetes mellitus with ketoacidosis with coma (principal); I46.9 Cardiac arrest, cause unspecified; Z79.4 Long term (current) use of insulin
CPT/HCPCS: 31500; 36416; 36556; 71045; 74176; 80053; 82010; 82330; 82435; 82803; 84132; 84295; 84484; 84703; 85014; 85025; 92950; 93005; 94760; 96361; 96365; 96366; 96374; 96375; 96376; J0171; J0461; J1265; J1815; J3475; J7050